=== PATIENT | male | born 1995 | race Caucasian/White ===

== ENCOUNTER 2024-06-23 20:13 | Emergency (ER) | payer BC ==
[2024-06-23] MEDS: Ondansetron 4 MG/2 ML SDV IVPUSH ONE (20:29)
[2024-06-23] MEDS: Lactated Ringers 1,000 ML IV ONE (20:30)
[2024-06-23 20:47] LABS: BASOPHILS ABSOLUTE AUTO 0.03 K/uL (0.00-0.20); BASOPHILS PERCENT AUTO 0.2 % (0.0-2.0); EOSINOPHILS ABSOLUTE AUTO 0.05 K/uL (0.00-0.50); EOSINOPHILS PERCENT AUTO 0.3 % (0.0-5.0); HEMOGLOBIN 16.4 g/dL (13.1-16.8); LYMPHOCYTES ABSOLUTE AUTO 1.03 K/uL (0.50-3.50); LYMPHOCYTES PERCENT AUTO 6.8 % (10.0-50.0); MEAN CORPUSCULAR HEMOGLOBIN 27.2 pg (28.2-33.3); MEAN CORPUSCULAR HGB CONC 36.4 g/dL (31.7-36.0); MEAN CORPUSCULAR VOLUME 74.6 fL (84.0-98.0); MONOCYTES ABSOLUTE AUTO 0.87 K/uL (0.00-1.00); MONOCYTES PERCENT AUTO 5.7 % (2.0-14.0); NEUTROPHILS ABSOLUTE AUTO 13.25 K/uL (1.40-7.00); PLATELET COUNT,PLT 451 K/uL (150-350); RED BLOOD CELL COUNT 6.03 M/uL (4.33-5.41); RED CELL DISTRIBUTION WIDTH 12.5 % (11.2-14.1); WHITE BLOOD CELL COUNT,WBC 15.2 K/uL (4.0-10.2)
[2024-06-23] MEDS: Ketorolac 15 MG/ML SDV IVPUSH ONE (21:01)
[2024-06-23] MEDS: Loperamide 2 MG Tab PO ONE (21:03)
[2024-06-23 21:06] LABS: ALBUMIN 4.8 g/dL (3.4-5.0); ANION GAP 18.9 meq/L (7-15); BILIRUBIN TOTAL 1.1 mg/dL (0.2-1.0); CALCIUM 10.5 mg/dL (8.5-10.1); CARBON DIOXIDE,CO2 21.1 mmol/L (21.0-32.0); CREATININE 1.34 mg/dL (0.51-1.17); EST CRCL DRUG DOSING (CG) 88.19 mL/min; MAGNESIUM 1.7 mg/dL (1.8-2.4); POTASSIUM,K 4.2 mmol/L (3.5-5.1); PROTEIN TOTAL,TP 8.5 g/dL (6.4-8.2)
[2024-06-23] MEDS ORDERED: Sodium Chloride 0.9% 10 ML Syringe FLUSH PRN (21:12)
[2024-06-23] MEDS: Pantoprazole 40 MG Vial IVPUSH ONE (21:14)
[2024-06-23] MEDS: Promethazine 25 MG/ML SDV IM ONE (21:14)
[2024-06-23] MEDS: Magnesium Sulfate/Water Premix 2 GM in Premix Bag 1 BAG IV ONE (21:20)
[2024-06-23] MEDS: Sodium Chloride 0.9% 1,000 ML IV ONE (21:23)
[2024-06-23] MEDS ORDERED: Take Home: Ondansetron 4 MG Tab.DIS, 5 Tab Pack ONE (23:38)
[2024-06-23 23:47] LABS: CREATININE 1.1 mg/dL (0.51-1.17); EST CRCL DRUG DOSING (CG) 107.44 mL/min
[2024-06-24] MEDS: Take Home: Ondansetron 4 MG Tab.DIS, 5 Tab Pack PO ONE (00:12)
== END 2024-06-24 00:14 | disposition home or self-care (01) ==
LOC: LL.ED 20:13
DX: E83.42 Hypomagnesemia (principal); E86.0 Dehydration
CPT/HCPCS: 36415; 72170; 74019; 80053; 82565; 83605; 83735; 85025; 96361; 96365; 96366; 96372; 96375; 99284; A9270; J1885; J2405; J2470; J2550; J3475; J7030; J7120; Q0162

== ENCOUNTER 2024-10-30 08:55 | Inpatient (IN) | payer BC ==
[2024-10-30] MEDS: Ketorolac 15 MG/ML SDV IVPUSH ONE (09:29)
[2024-10-30] MEDS: Ondansetron 4 MG/2 ML SDV IVPUSH ONE (09:29)
[2024-10-30] MEDS: Sodium Chloride 0.9% 10 ML Syringe FLUSH PRN (09:30)
[2024-10-30 09:32] LABS: APPEARANCE,URINE CLOUDY; BASOPHILS ABSOLUTE AUTO 0.03 K/uL (0.00-0.20); BASOPHILS PERCENT AUTO 0.4 % (0.0-2.0); BILIRUBIN,URINE SMALL (NEGATIVE); COLOR,URINE DARK YELLOW; EOSINOPHILS ABSOLUTE AUTO 0.09 K/uL (0.00-0.50); EOSINOPHILS PERCENT AUTO 1.2 % (0.0-5.0); GLUCOSE,URINE NEGATIVE (NEGATIVE); HEMATOCRIT 44.8 % (39.0-49.0); HEMOGLOBIN 15.8 g/dL (13.1-16.8); IMMATURE GRAN ABSOLUTE AUTO 0.01 10^3/uL (0.00-0.04); IMMATURE GRAN PERCENT AUTO 0.1 % (0.0-0.4); KETONES,URINE TRACE mg/dL (NEGATIVE); LEUKOCYTE ESTERASE,URINE NEGATIVE (NEGATIVE); LYMPHOCYTES ABSOLUTE AUTO 2.92 K/uL (0.50-3.50); LYMPHOCYTES PERCENT AUTO 38.2 % (10.0-50.0); MEAN CORPUSCULAR HEMOGLOBIN 26.8 pg (28.2-33.3); MEAN CORPUSCULAR HGB CONC 35.3 g/dL (31.7-36.0); MEAN CORPUSCULAR VOLUME 76.1 fL (84.0-98.0); MONOCYTES PERCENT AUTO 6.5 % (2.0-14.0); NEUTROPHILS ABSOLUTE AUTO 4.09 K/uL (1.40-7.00); NEUTROPHILS PERCENT AUTO 53.6 % (45.0-80.0); NITRITE,URINE NEGATIVE (NEGATIVE); OCCULT BLOOD,URINE LARGE (NEGATIVE); PLATELET COUNT,PLT 380 K/uL (150-350); PROTEIN,URINE >=300 mg/dL (NEGATIVE); RED BLOOD CELL COUNT 5.89 M/uL (4.33-5.41); RED CELL DISTRIBUTION WIDTH 11.8 % (11.2-14.1); UROBILINOGEN,URINE 0.2 E.U./dL (0.2-1.0); WHITE BLOOD CELL COUNT,WBC 7.6 K/uL (4.0-10.2)
[2024-10-30 09:38] LABS: BACTERIA,URINE NOT SEEN /HPF (NONE TO FEW); EPITHELIAL CELLS,URINE FEW /LPF; RBC,URINE >100 /HPF; WBC,URINE 0-5 /HPF
[2024-10-30 09:39] LABS: MUCUS,URINE FEW /LPF (NEGATIVE); OTHER CRYSTALS,URINE RARE /HPF
[2024-10-30 09:51] LABS: ALBUMIN 4.2 g/dL (3.4-5.0); ANION GAP 13.1 meq/L (7-15); BILIRUBIN TOTAL 0.6 mg/dL (0.2-1.0); CALCIUM 9.3 mg/dL (8.5-10.1); CARBON DIOXIDE,CO2 26.9 mmol/L (21.0-32.0); CREATININE 1.09 mg/dL (0.51-1.17); EST CRCL DRUG DOSING (CG) 107.46 mL/min; POTASSIUM,K 3.8 mmol/L (3.5-5.1); PROTEIN TOTAL,TP 7.7 g/dL (6.4-8.2)
[2024-10-30] MEDS: Sodium Chloride 0.9% 1,000 ML IV ONE ×2 (10:59→12:05)
[2024-10-30] MEDS: Morphine 2 MG/ML SYRINGE IVPUSH ONE (11:00)
[2024-10-30] MEDS: Promethazine 25 MG/ML SDV IM ONE (11:39)
[2024-10-30] MEDS: HYDROmorphone 1 MG/ML Syringe IVPUSH PRN (12:00)
[2024-10-30] MEDS: Acetaminophen 325 MG Tab PO PRN (13:41)
[2024-10-30] MEDS: Tamsulosin 0.4 MG Cap.ER PO ONE ×2 (13:42→14:32)
[2024-10-30] MEDS: Tamsulosin 0.4 MG Cap.ER ONE (13:43)
[2024-10-30] MEDS ORDERED: HYDROmorphone 0.5 MG/0.5 ML Syringe IVPUSH PRN (14:08)
[2024-10-30] MEDS: Ketorolac 15 MG/ML SDV IVPUSH SCH (15:54)
[2024-10-30] MEDS: Sodium Chloride 0.9% 1,000 ML IV SCH (16:10)
[2024-10-30] MEDS: Ondansetron 4 MG/2 ML SDV IVPUSH PRN (20:52)
[2024-10-31] MEDS: Tamsulosin 0.4 MG Cap.ER PO ONE (08:31)
[2024-10-31 09:14] LABS: BASOPHILS ABSOLUTE AUTO 0.03 K/uL (0.00-0.20); BASOPHILS PERCENT AUTO 0.3 % (0.0-2.0); EOSINOPHILS ABSOLUTE AUTO 0.03 K/uL (0.00-0.50); EOSINOPHILS PERCENT AUTO 0.3 % (0.0-5.0); HEMATOCRIT 41.2 % (39.0-49.0); HEMOGLOBIN 14.4 g/dL (13.1-16.8); IMMATURE GRAN ABSOLUTE AUTO 0.01 10^3/uL (0.00-0.04); IMMATURE GRAN PERCENT AUTO 0.1 % (0.0-0.4); LYMPHOCYTES ABSOLUTE AUTO 1.34 K/uL (0.50-3.50); LYMPHOCYTES PERCENT AUTO 13.7 % (10.0-50.0); MEAN CORPUSCULAR VOLUME 77.3 fL (84.0-98.0); MONOCYTES PERCENT AUTO 8.2 % (2.0-14.0); NEUTROPHILS PERCENT AUTO 77.4 % (45.0-80.0); PLATELET COUNT,PLT 313 K/uL (150-350); RED BLOOD CELL COUNT 5.33 M/uL (4.33-5.41); RED CELL DISTRIBUTION WIDTH 11.8 % (11.2-14.1); WHITE BLOOD CELL COUNT,WBC 9.8 K/uL (4.0-10.2)
[2024-10-31 09:31] LABS: ANION GAP 8.4 meq/L (7-15); CALCIUM 8.6 mg/dL (8.5-10.1); CARBON DIOXIDE,CO2 27.6 mmol/L (21.0-32.0); CREATININE 1.76 mg/dL (0.51-1.17); EST CRCL DRUG DOSING (CG) 66.55 mL/min; POTASSIUM,K 4.3 mmol/L (3.5-5.1)
[2024-10-31] MEDS: Ketorolac 15 MG/ML SDV IVPUSH ONE (11:51)
[2024-10-31] MEDS: Apixaban 5 MG Tab PO SCH (12:40)
[2024-10-31] MEDS: Diltiazem IR 60 MG Tab PO ONE (12:40)
[2024-10-31] MEDS: Diltiazem 25 MG/5 ML SDV IVPUSH ONE ×2 (13:51→17:34)
[2024-10-31 14:08] LABS: APPEARANCE,URINE CLEAR; BILIRUBIN,URINE NEGATIVE (NEGATIVE); COLOR,URINE YELLOW; GLUCOSE,URINE NEGATIVE (NEGATIVE); KETONES,URINE NEGATIVE (NEGATIVE); LEUKOCYTE ESTERASE,URINE NEGATIVE (NEGATIVE); NITRITE,URINE NEGATIVE (NEGATIVE); OCCULT BLOOD,URINE NEGATIVE (NEGATIVE); PROTEIN,URINE NEGATIVE (NEGATIVE); UROBILINOGEN,URINE 0.2 E.U./dL (0.2-1.0)
[2024-10-31 14:19] LABS: MAGNESIUM 1.7 mg/dL (1.8-2.4)
[2024-10-31] MEDS: Magnesium Sulfat/D5W 1GM/100ML 1 GM in Premix Bag 1 BAG IV ONE (14:20)
[2024-10-31] MEDS ORDERED: oxyCODONE 5 MG Tab PO PRN (16:24)
[2024-10-31] MEDS ORDERED: Sodium Chloride 0.9% 500 ML IV SCH (16:30)
[2024-10-31] MEDS ORDERED: Diltiazem 125 MG in Sodium Chloride 0.9% 100 ML IV SCH (17:00)
[2024-10-31] MEDS: Sodium Chloride 0.9% 1,000 ML IV SCH (17:09)
[2024-10-31 18:20] LABS: ANION GAP 7.6 meq/L (7-15); CALCIUM 8.1 mg/dL (8.5-10.1); CARBON DIOXIDE,CO2 28.4 mmol/L (21.0-32.0); CREATININE 1.6 mg/dL (0.51-1.17); EST CRCL DRUG DOSING (CG) 73.21 mL/min
[2024-10-31] MEDS: Diltiazem 120 MG Cap.CD PO ONE (18:21)
== END 2024-10-31 19:48 | disposition home or self-care (01) | DRG 201 ==
LOC: LL.ED 08:55 → LL.MS 10:39 → OBSVTOIN 10-31 13:00
PROVIDERS: ADMIT Emergency Medicine; ATTEND Emergency Medicine
DX: I48.91 Unspecified atrial fibrillation (principal); N13.2 Hydronephrosis with renal and ureteral calculous obstruction
CPT/HCPCS: 36415; 74176; 80048; 80053; 81001; 81003; 83735; 84484; 85025; 93005; 96374; 96375; 99285-25; A9270-GY; J1171; J1885; J2270; J2405; J2550; J3475; J3490; J7030